=== PATIENT | male | born 1995 | race Two or more races ===

== ENCOUNTER 2019-03-15 12:39 | Emergency (ER) | payer SELFPAY ==
[~2019-03-15] VITALS: Ht 182.9 cm; Wt 97.5 kg
[2019-03-15 14:05] VITALS: BP 125/74
[2019-03-15] MEDS ORDERED: NEOMY/BACITR/POLYMYXIN OINT PACKET. TP ONE (15:15)
[2019-03-15] MEDS ORDERED: LIDOCAINE 1%/EPI 1:100,000 20 ML VIAL. SQ ONE (15:15)
--- NOTE | 2019-03-15 16:40 | PHYS DOC ---
Past Medical History Past Medical History: No Pertinent History (NORA NARAYANAN APRN) Past Surgical History: No Surgical History (NORA NARAYANAN APRN) Alcohol Use: None Drug Use: Marijuana (NORA NARAYANAN APRN) Adult General Chief Complaint Chief Complaint: LACERATION/AVULSION HPI HPI Patient is a 24 year old male, accompanied by his spouse, who presents to the emergency department with complaints of a laceration to the anterior lower left leg. Patient states a fluorescent light bulb in his garage broke and cut his leg. His last tetanus has been less than 5 years ago. He currently rates his pain a 5 out of 10 on the pain scale, there are no alleviating or exacerbating factors. ROS Patient denies any fever, cough, numbness, tingling, weakness, or decreased range of motion of the affected extremity. All other ROS is neg unless otherwise noted in HPI. (NORA NARAYANAN APRN) Review of Systems Review of Systems See Above (NORA NARAYANAN APRN) Current Medications Current Medications Current Medications Medications (Trade) Dose Ordered Sig/Ruddy Start Time Stop Time Status Last Admin Dose Admin Lidocaine/ Epinephrine (LIDOCAINE 1%-EPI 1:100,000 Multi-Dose) 20 ml 1X ONCE 03/15/19 15:15 03/15/19 15:16 DC 03/15/19 15:21 20 ML Neomycin/ Polymyxin/ Bacitracin (Triple Antibiotic Ointment) 1 pkt 1X ONCE 03/15/19 15:15 03/15/19 15:16 DC 03/15/19 15:21 1 PKT (ZULAY BURTON MD) Allergies Allergies Allergies Coded Allergies Type Severity Reaction Last Updated Verified No Known Drug Allergies 03/15/19 No (ZULAY BURTON MD) Physical Exam Physical Exam Constitutional: Well developed, well nourished, no acute distress, non-toxic appearance. [] HENT: Normocephalic, atraumatic, bilateral external ears normal, nose normal. [] Eyes: PERRLA, EOMI, conjunctiva normal, no discharge. [] Neck: Normal range of motion, no stridor. [] Cardiovascular:Heart rate regular rhythm Lungs & Thorax: Respirations even and unlabored, no retractions, no respiratory distress Skin: Warm, dry, no erythema, no rash; 7 cm laceration to anterior lower left leg, bleeding controlled with pressure bandage, a significant amount of adipose tissue is exposed. [] Extremities: No cyanosis, ROM intact, no edema. [] Neurologic: Alert and oriented X 3, normal motor function, normal sensory function, no focal deficits noted. [] Psychologic: Affect normal, judgement normal, mood normal. [] (NORA NARAYANAN APRN) Current Patient Data Vital Signs Vital Signs Date Time Temp Pulse Resp B/P (MAP) Pulse Ox O2 Delivery O2 Flow Rate FiO2 03/15/19 14:05 98.4 65 18 125/74 (91) 97 Room Air 98.4 (ZULAY BURTON MD) EKG EKG [] (NORA NARAYANAN APRN) Radiology/Procedures Radiology/Procedures Laceration Repair by me: Anesthesia: 1% lidocaine locally with epi Location: anterior lower left leg Tendon/Joint/Nerves: No injury Foreign body: None detected after copious irrigation with 240 ml of NS and exploration Technique: 12 Simple Interrupted Sutures with 3-0 Ethilon Complexity: 3 subcutaneous sutures with 3-0 vicryl Post Closure Length: 7 cm Patient's bleeding was easily controlled in the department and there is no indication of anemia. No evidence of compartment syndrome, neurologic injury, vascular injury, open joint, tendon laceration, or foreign body. Patient is appropriate for outpatient follow up. (NORA NARAYANAN APRN) Course & Med Decision Making Course & Med Decision Making Pertinent Labs and Imaging studies reviewed. (See chart for details) dx: left lower leg laceration wound repair as documented under procedures. Return to the ER or see your PCP in 10-14 days to have external sutures removed. Antibiotic ointment and clean bandage twice daily and as needed. Tylenol or ibuprofen as needed for pain. Patient verbalized an understanding of home care, medications, follow-up, and return to ED instructions and was in agreement with the plan of care. [] (NORA NARAYANAN APRN) Course & Med Decision Making Staff Physician Addendum: I was working in the ER during the course of this patient's visit. I was available for consultation as needed, but I was not directly involved in the care of this patient. (ZULAY BURTON MD) Dragon Disclaimer Dragon Disclaimer This electronic medical record was generated, in whole or in part, using a voice recognition dictation system. (NORA NARAYANAN APRN) Departure Departure Impression: Primary Impression: Laceration of lower leg, left, complicated Disposition: 01 HOME, SELF-CARE Condition: STABLE Referrals: NO PCP (PCP) Patient Instructions: Laceration Care, Adult, [id number] Additional Instructions: Return to the ER or see your PCP in 10-14 days to have external sutures removed. Antibiotic ointment and clean bandage twice daily and as needed. Tylenol or ibuprofen as needed for pain. Problem Qualifiers Primary Impression: Laceration of lower leg, left, complicated Encounter type: initial encounter Qualified Codes: S81.812A - Laceration without foreign body, left lower leg, initial encounter NORA NARAYANAN APRN Mar 15, 2019 16:40 ZULAY BURTON MD Mar 16, 2019 06:11
== END 2019-03-15 17:30 | disposition home or self-care (01) ==
LOC: EDBD 12:39 → ER 12:39
DX: S81.812A Laceration without foreign body, left lower leg, initial encounter (principal); W26.8XXA Contact with other sharp object(s), not elsewhere classified, initial encounter; Y93.89 Activity, other specified; Y92.89 Other specified places as the place of occurrence of the external cause; Y99.8 Other external cause status
CPT/HCPCS: 12002; 99283; J3490